=== PATIENT | female | born 1990 | race Caucasian/White ===

== ENCOUNTER 2018-10-30 13:29 | Emergency (ER) | payer OTHER ==
[~2018-10-30] VITALS: Ht 167.6 cm; Wt 65.8 kg
[~2018-10-30 13:29] MED LIST: ADDERALL30 MG PO; AMOXICILLIN500 MG PO; AUGMENTIN 875875 MG PO; BACTRIM DS 8001 TA1 PO; CLARITIN10 MG PO; HYDROCODONE BIT1 T11 PO; LABETALOL PO; MACROBID100 M1 PO; MOTRIN600 MG PO; MOTRIN800 MG PO; NKHM; PERCOCET 325 MG1 TA2 PO; PHENERGAN W/ DE30 ML PO; PREDNICOT10 MG PO; PRENATAL1 TA4 PO; PROAIR HFA0.09 MG/AC INH; PYRIDIUM200 MG PO; ULTRAM50 MG PO; VICODIN 5/500 505 MG PO; VICODIN ES 7501 TAB PO; ZITHROMAX Z PA250 MG PO; ZOFRAN ODT4 MG SL; ZOFRAN4 MG PO
[2018-10-30] MEDS ORDERED: NAPROSYN500 MG PO (13:50)
== END 2018-10-30 13:53 | disposition home or self-care (01) ==
LOC: ED 13:29
DX: T33.822A Superficial frostbite of left foot, initial encounter (principal); T33.821A Superficial frostbite of right foot, initial encounter; Z79.899 Other long term (current) drug therapy; X31.XXXA Exposure to excessive natural cold, initial encounter; Y93.89 Activity, other specified; Y92.89 Other specified places as the place of occurrence of the external cause; Y99.8 Other external cause status

== ENCOUNTER → 2020-11-09 | Outpatient (CLI) | payer OTHER ==
[~2020-11-09] MED LIST changes: +NAPROSYN500 MG PO
== END | disposition home or self-care (01) ==
LOC: COVID19 10:12
PROVIDERS: ATTEND Internal Medicine
DX: Z11.52 Encounter for screening for COVID-19 (principal)

== ENCOUNTER 2021-05-29 11:21 | Emergency (ER) | payer OTHER ==
[~2021-05-29] VITALS: Wt 70.3 kg
== END 2021-05-29 14:51 | disposition home or self-care (01) ==
LOC: ED 11:21
DX: J02.9 Acute pharyngitis, unspecified (principal); Z20.822 Contact with and (suspected) exposure to COVID-19; R05 Cough; Z79.899 Other long term (current) drug therapy

== ENCOUNTER 2021-10-10 16:21 | Emergency (ER) | payer OTHER ==
[~2021-10-10] VITALS: Ht 165.1 cm; Wt 68.0 kg
[2021-10-10] MEDS ORDERED: AMOXICILLIN500 M2 PO (17:17)
[2021-10-10] MEDS ORDERED: DIFLUCAN150 MG PO (17:17)
== END 2021-10-10 17:30 | disposition home or self-care (01) ==
LOC: ED 16:21
DX: J02.9 Acute pharyngitis, unspecified (principal); Z79.899 Other long term (current) drug therapy

== ENCOUNTER 2021-11-04 19:41 | Emergency (ER) | payer OTHER ==
[~2021-11-04] VITALS: Ht 170.1 cm; Wt 72.6 kg
[~2021-11-04 19:41] MED LIST changes: +AMOXICILLIN500 M2 PO; +DIFLUCAN150 MG PO
[2021-11-04 20:19] LABS: BASO % 0.5 % (0.0-1.0); EOS # 0.2 10*3/uL (0.0-0.4); EOS % 3.1 % (1.0-4.0); HEMATOCRIT 37.1 % (37.0-47.0); LYMPH # 1.4 10*3/uL (1.3-4.4); LYMPH % 18.2 % (27.0-41.0); MEAN CELL VOLUME 90.9 fl (81.0-99.0); MEAN CORPUSCULAR HGB 31.6 pg (27.0-31.0); MEAN CORPUSCULAR HGB CONC 34.8 g/dl (33.0-37.0); MEAN PLATELET VOLUME 11.5 fl (9.6-12.3); MONO # 0.5 10*3/uL (0.1-1.0); MONO % 6.6 % (3.0-9.0); NEUT # 5.4 10*3/uL (2.3-7.9); NEUT % 71.5 % (47.0-73.0); PLATELET COUNT AUTOMATED 160 10*3/uL (130-400); RED BLOOD COUNT 4.08 10*6/uL (4.10-5.10); RED CELL DISTRI WIDTH 12.2 % (0-14.5); WHITE BLOOD COUNT 7.5 10*3/uL (4.8-10.8)
[2021-11-04 20:39] LABS: ALBUMIN 3.7 gm/dl (3.1-4.5); ALKALINE PHOSPHATASE 101 U/L (45-117); BUN 10 mg/dl (7-24); CHLORIDE 109 mmol/L (98-107); CREATININE 0.75 mg/dL (0.55-1.02); POTASSIUM 3.6 mmol/L (3.5-5.1); SGOT/AST 12 IU/L (3-35); SGPT/ALT 23 U/L (12-78); SODIUM 139 mmol/L (136-145); TOTAL PROTEIN 7.8 gm/dL (6.4-8.2)
== END 2021-11-04 22:04 | disposition home or self-care (01) ==
LOC: ED 19:41
PROVIDERS: Internal Medicine
DX: B34.9 Viral infection, unspecified (principal); Z20.822 Contact with and (suspected) exposure to COVID-19; R79.82 Elevated C-reactive protein (CRP); Z79.899 Other long term (current) drug therapy

== ENCOUNTER 2021-12-20 17:18 | Emergency (ER) | payer OTHER ==
[~2021-12-20] VITALS: Ht 165.1 cm; Wt 77.1 kg
[2021-12-20] MEDS ORDERED: AMOXICILLIN500 M2 PO (19:09)
== END 2021-12-20 19:18 | disposition home or self-care (01) ==
LOC: ED 17:18
DX: J02.9 Acute pharyngitis, unspecified (principal); R50.9 Fever, unspecified; Z79.899 Other long term (current) drug therapy

== ENCOUNTER → 2022-11-14 | Outpatient (CLI) | payer MEDICAID | END | disposition home or self-care (01) | LOC: LAB 12:51 | PROVIDERS: ATTEND Nurse Practitioner Women's Health | DX: N91.2 Amenorrhea, unspecified (principal) ==